=== PATIENT | male | born 1990 | race Caucasian/White ===

== ENCOUNTER 2017-06-09 20:21 | Emergency (ER) | payer MEDICAID, OTHER ==
[~2017-06-09] VITALS: Ht 172.7 cm; Wt 68.0 kg
--- NOTE | 2017-06-09 20:31 | NUR ---
Patient arrived in full C-Spine precautions with hard C-collar and backboard in place. ED physician notified. Dr Machado into eval Patient
--- NOTE | 2017-06-09 20:57 | NUR ---
Patient out of unit for ct scan with no distress noted
--- NOTE | 2017-06-09 21:30 | NUR ---
Patient back from ct scan
--- NOTE | 2017-06-09 21:52 | NUR ---
C-spine cleared by Dr. Ruht Machado ) . Collar and backboard removed. Patient able to move all extremities before and after backboard removal.
[2017-06-09] MEDS ORDERED: HYDROCODONE/APAP 5-325MG TABLET PO ONE (22:00)
--- NOTE | 2017-06-09 22:16 | NUR ---
[employer] into interview patient
[2017-06-09] MEDS ORDERED: HYDROCODONE/APAP 5-325MG TABLET ONE (22:43)
--- NOTE | 2017-06-09 23:23 | NUR ---
Patient discharged to home in stable conditonwith brother taking patient home. Written and verbal after care instructions given. Patient verbalizes understanding of instructions. Walked out of ER with steady gait.No distress noted
[2017-06-09 23:24] VITALS: BP 138/74
--- NOTE | 2017-06-10 02:14 | NUR ---
Received call from unknown person stating that they were "Officer De Paz" with [employer] and that he needed to get the patient's contact information. Caller stated that he had failed to obtain contact information while present. Due to not having any way to verify caller's identity, [employer] Non-Emergency dispatcher ([employer][id number]) was contacted and patient's contact information was relayed through official [employer] dispatch.
== END 2017-06-09 23:25 | disposition home or self-care (01) ==
LOC: ER 20:22
DX: S13.4XXA Sprain of ligaments of cervical spine, initial encounter (principal); S70.12XA Contusion of left thigh, initial encounter; S20.219A Contusion of unspecified front wall of thorax, initial encounter; S33.5XXA Sprain of ligaments of lumbar spine, initial encounter; V43.52XA Car driver injured in collision with other type car in traffic accident, initial encounter; Y93.89 Activity, other specified; Y92.413 State road as the place of occurrence of the external cause; Y99.9 Unspecified external cause status
CPT/HCPCS: 70450; 72125; 72131; 73551; 99285; A4663